=== PATIENT | male | born 1970 ===

== ENCOUNTER 2017-11-11 10:21 | Outpatient (CLI) | payer OTHER ==
[~2017-11-11] VITALS: Ht 185.4 cm; Wt 83.9 kg
== END 2017-11-11 10:40 | disposition home or self-care (01) ==
LOC: OFIC 805 10:21
DX: J31.0 Chronic rhinitis (principal); H61.22 Impacted cerumen, left ear

== ENCOUNTER 2017-12-02 10:05 | Outpatient (CLI) | payer OTHER ==
[~2017-12-02] VITALS: Ht 182.9 cm; Wt 83.9 kg
== END 2017-12-02 10:20 | disposition home or self-care (01) ==
LOC: OFIC 805 10:05
DX: J31.0 Chronic rhinitis (principal); H93.13 Tinnitus, bilateral